=== PATIENT | female | born 1950 | race Caucasian/White ===

== ENCOUNTER → 2016-11-27 | Outpatient (CLI) | payer MEDICARE, BC ==
[~2016-11-27] MED LIST: DULCOLAX STOOL100 MG PO; FERROUS SU325 MG/TAB PO; FLEXERIL 1010 MG/TAB PO; HYZAAR 25 MG-101 TAB PO; MASON NATURAL1200 MG PO; MOTRIN 600600 MG/TAB PO; NORCO 325 MG-101 TAB PO; NORCO 325 MG-51 TAB PO; NORCO 325 MG-7.1 TAB PO; OSCAL 500 TAB500 MG PO; PERCOCET 325 MG1 TA3 PO; PREDNISONE10 MG PO; ROCEPHIN 2GM VIAL21 IV; ROCEPHIN 2GM VIAL21 IV.SOLN; TYLENOL 325MG325 MG PO; ULTRAM 50MG TAB50 MG PO; VITAMIN E1000 U/CAP PO; ZANAFLEX2 MG PO; ZETIA 10MG TAB10 MG PO; ZOCOR 10MG10 MG PO
== END ==
LOC: MC.RAD 11-26 10:00
DX: Z12.31 Encounter for screening mammogram for malignant neoplasm of breast (principal)

== ENCOUNTER → 2016-11-30 | Outpatient (CLI) | payer MEDICARE, BC | LOC: COL.VAS 12:06 | DX: I35.0 Nonrheumatic aortic (valve) stenosis (principal); R01.1 Cardiac murmur, unspecified ==

== ENCOUNTER 2017-02-10 10:56 | Emergency (ER) | payer MEDICARE, BC ==
[~2017-02-10] VITALS: Ht 162.6 cm; Wt 113.6 kg
[2017-02-10 11:01] VITALS: TEMP 98.6
[2017-02-10] MEDS ORDERED: NORCO 325 MG-7.1 TAB PO (11:27)
[2017-02-10] MEDS ORDERED: PREDNISONE10 MG PO (11:27)
[2017-02-10] MEDS ORDERED: ULTRAM 50MG TAB50 MG PO (11:31)
[2017-02-10] MEDS ORDERED: HYZAAR 25 MG-101 TAB PO (11:32)
[2017-02-10] MEDS ORDERED: ZOCOR 10MG10 MG PO (11:32)
[2017-02-10] MEDS ORDERED: VITAMIN E1000 U/CAP PO (11:32)
[2017-02-10] MEDS ORDERED: OSCAL 500 TAB500 MG PO (11:33)
[2017-02-10] MEDS ORDERED: FLEXERIL 1010 MG/TAB PO (11:43)
[2017-02-10] MEDS ORDERED: PERCOCET 325 MG1 TA3 PO (11:43)
[2017-02-10 13:30] VITALS: BP 121/57; PULSE 77
== END 2017-02-10 13:30 | disposition home or self-care (01) ==
LOC: COL.ER 10:56
DX: M19.071 Primary osteoarthritis, right ankle and foot (principal); M62.838 Other muscle spasm
CPT/HCPCS: J1885; J2060; J2270

== ENCOUNTER 2017-02-18 13:45 | Inpatient (IN) | payer MEDICARE, BC ==
[~2017-02-18] VITALS: Ht 165.1 cm; Wt 124.0 kg
[~2017-02-18 13:45] MED LIST changes: -DULCOLAX STOOL100 MG PO; -FERROUS SU325 MG/TAB PO; -MASON NATURAL1200 MG PO; -MOTRIN 600600 MG/TAB PO; -NORCO 325 MG-101 TAB PO; -NORCO 325 MG-51 TAB PO; -ROCEPHIN 2GM VIAL21 IV; -ROCEPHIN 2GM VIAL21 IV.SOLN; -TYLENOL 325MG325 MG PO; -ZANAFLEX2 MG PO; -ZETIA 10MG TAB10 MG PO
[2017-02-18 18:33] VITALS: BP 150/66; PULSE 82; TEMP 99.3
[2017-02-18 18:41] VITALS: BP 150/66; PULSE 82; TEMP 99.3
[2017-02-18] MEDS ORDERED: ROCEPHIN 2GM VIAL21 IV.SOLN (21:48)
[2017-02-18] MEDS ORDERED: DULCOLAX STOOL100 MG PO (21:49)
[2017-02-18] MEDS ORDERED: MOTRIN 600600 MG/TAB PO (21:50)
[2017-02-18] MEDS ORDERED: NORCO 325 MG-51 TAB PO (21:50)
[2017-02-18] MEDS ORDERED: ZANAFLEX2 MG PO (21:52)
[2017-02-18] MEDS ORDERED: ZETIA 10MG TAB10 MG PO (21:54)
[2017-02-18] MEDS ORDERED: MASON NATURAL1200 MG PO (21:55)
[2017-02-19 03:47] VITALS: BP 111/67; PULSE 71; TEMP 98.2
[2017-02-19 16:07] VITALS: BP 157/69; PULSE 78; TEMP 98.6
[2017-02-20 05:00] VITALS: BP 145/65; PULSE 75; TEMP 97.2
[2017-02-20 07:39] LABS: BASO % 0.2 % (0.0-2.0); EOS # 0.2 (0.0-0.7); EOS % 1.5 % (0-4.0); LYMPH # 3.1 (1.2-3.4); LYMPH % 25.2 % (20.0-51.0); MEAN CELL VOLUME 99 fl (80.0-100.0); MEAN CORPUSCULAR HGB CONC 32 g/dl (33.0-37.0); MEAN PLATELET VOLUME 9.9 fl (7.4-10.4); MONO # 0.9 (0.1-0.6); MONO % 7.5 % (1.7-9.3); PLATELET COUNT 769 K/mm3 (130-400); RED BLOOD COUNT 2.66 M/mm3 (4.10-5.30); REDCELL DISTRIBUTION WIDTH-CV 14.5 % (11.5-14.5); WHITE BLOOD COUNT 12.4 K/mm3 (4.8-10.8)
[2017-02-20 07:46] LABS: CALCIUM 9.2 mg/dL (8.4-10.2); CREATININE, serum 0.75 mg/dL (0.52-1.25)
[2017-02-20 08:05] LABS: HEMATOCRIT 26.3 % (37.0-47.0); HEMOGLOBIN 8.5 g/dl (12.5-16.0); MEAN CORPUSCULAR HEMOGLOBIN 32 pg (27.0-31.0)
[2017-02-20 17:03] VITALS: BP 143/48; PULSE 72; TEMP 97.4
[2017-02-21 04:05] VITALS: BP 128/52; PULSE 74; TEMP 98.6
[2017-02-21 18:00] VITALS: BP 140/42; PULSE 80; TEMP 98.3
[2017-02-22 07:04] VITALS: BP 142/76; PULSE 83; TEMP 98.7
[2017-02-22 18:58] VITALS: BP 119/42; PULSE 76; TEMP 97.9
[2017-02-23 05:11] VITALS: BP 117/50; PULSE 87; TEMP 97.5
[2017-02-23 16:46] VITALS: BP 142/51; PULSE 74; TEMP 99.6
[2017-02-24 06:45] VITALS: BP 140/49; PULSE 76; TEMP 99.4
[2017-02-24 16:53] VITALS: BP 108/90; PULSE 69; TEMP 98.5
[2017-02-25 05:23] VITALS: BP 137/53; PULSE 86; TEMP 99
[2017-02-25 07:51] LABS: BASO # 0.1 (0.0-0.2); BASO % 0.6 % (0.0-2.0); EOS # 0.3 (0.0-0.7); EOS % 2.9 % (0-4.0); GRAN # 5.7 (1.4-6.5); GRAN % 56.8 % (42.2-75.2); LYMPH # 3.1 (1.2-3.4); LYMPH % 31.3 % (20.0-51.0); MEAN CELL VOLUME 99 fl (80.0-100.0); MEAN CORPUSCULAR HGB CONC 32 g/dl (33.0-37.0); MEAN PLATELET VOLUME 10.1 fl (7.4-10.4); MONO # 0.8 (0.1-0.6); MONO % 8.1 % (1.7-9.3); PLATELET COUNT 773 K/mm3 (130-400); RED BLOOD COUNT 2.57 M/mm3 (4.10-5.30); REDCELL DISTRIBUTION WIDTH-CV 14.6 % (11.5-14.5)
[2017-02-25 07:58] LABS: HEMATOCRIT 25.4 % (37.0-47.0); HEMOGLOBIN 8.2 g/dl (12.5-16.0); MEAN CORPUSCULAR HEMOGLOBIN 32 pg (27.0-31.0)
[2017-02-25 08:05] LABS: ADJUSTED CALCIUM 9.6 mg/dL (8.4-10.2); ALBUMIN 3.2 gm/dL (3.5-5.0); BILIRUBIN,TOTAL 0.6 mg/dL (0.0-1.0); CREATININE, serum 0.78 mg/dL (0.52-1.25); POTASSIUM 3.9 mmol/L (3.4-5.0); TOTAL PROTEIN 7.2 gm/dL (6.4-8.2)
[2017-02-25 08:30] LABS: C-REACTIVE PROTEIN 16.8 mg/dL (0.0-0.9)
[2017-02-25 16:15] VITALS: BP 117/44; PULSE 77; TEMP 98.2
[2017-02-26 06:12] VITALS: BP 119/50; PULSE 71; TEMP 98.4
[2017-02-26] MEDS ORDERED: ZANAFLEX2 MG PO (11:46)
[2017-02-26] MEDS ORDERED: TYLENOL 325MG325 MG PO (11:47)
[2017-02-26] MEDS ORDERED: NORCO 325 MG-101 TAB PO (11:49)
[2017-02-26] MEDS ORDERED: ROCEPHIN 2GM VIAL21 IV (11:49)
[2017-02-26] MEDS ORDERED: FERROUS SU325 MG/TAB PO (11:50)
== END 2017-02-26 16:00 | disposition home or self-care (01) | DRG 948 ==
PROVIDERS: Family Medicine; Internal Medicine
DX: R53.81 Other malaise (principal); M00.271 Other streptococcal arthritis, right ankle and foot; M00.212 Other streptococcal arthritis, left shoulder; M00.211 Other streptococcal arthritis, right shoulder; Z68.42 Body mass index [BMI] 45.0-49.9, adult; M46.46 Discitis, unspecified, lumbar region; I10 Essential (primary) hypertension; E66.01 Morbid (severe) obesity due to excess calories; Z87.891 Personal history of nicotine dependence; I35.0 Nonrheumatic aortic (valve) stenosis; B95.4 Other streptococcus as the cause of diseases classified elsewhere
CPT/HCPCS: 99222-AI; 99232-AI; 99239; J0696; J1644; J1650

== ENCOUNTER → 2017-03-20 | Outpatient (REF) ==
[~2017-03-20] MED LIST changes: +DULCOLAX STOOL100 MG PO; +FERROUS SU325 MG/TAB PO; +MASON NATURAL1200 MG PO; +MOTRIN 600600 MG/TAB PO; +NORCO 325 MG-101 TAB PO; +NORCO 325 MG-51 TAB PO; +ROCEPHIN 2GM VIAL21 IV; +ROCEPHIN 2GM VIAL21 IV.SOLN; +TYLENOL 325MG325 MG PO; +ZANAFLEX2 MG PO; +ZETIA 10MG TAB10 MG PO
== END ==
LOC: ZAIV 06:20
DX: Z01.89 Encounter for other specified special examinations (principal)

== ENCOUNTER → 2018-04-16 | Outpatient (CLI) | payer MEDICARE, BC | LOC: MC.RAD 11:15 | DX: Z12.31 Encounter for screening mammogram for malignant neoplasm of breast (principal) ==

== ENCOUNTER 2018-06-10 18:46 | Emergency (ER) | payer MEDICARE, BC ==
[~2018-06-10] VITALS: Ht 162.6 cm; Wt 107.3 kg
[2018-06-10 18:49] VITALS: TEMP 98.7
[2018-06-10 20:05] LABS: BASO # 0.1 (0.0-0.2); BASO % 0.6 % (0.0-2.0); EOS # 0.2 (0.0-0.7); EOS % 1.5 % (0-4.0); GRAN # 8.2 (1.4-6.5); GRAN % 71.8 % (42.2-75.2); HEMOGLOBIN 10.3 g/dl (12.5-16.0); LYMPH # 2.2 (1.2-3.4); LYMPH % 19.5 % (20.0-51.0); MEAN CELL VOLUME 94 fl (80.0-100.0); MEAN CORPUSCULAR HEMOGLOBIN 32 pg (27.0-31.0); MEAN CORPUSCULAR HGB CONC 34 g/dl (33.0-37.0); MEAN PLATELET VOLUME 9.8 fl (7.4-10.4); MONO # 0.7 (0.1-0.6); MONO % 6.3 % (1.7-9.3); PLATELET COUNT 397 K/mm3 (130-400); RED BLOOD COUNT 3.27 M/mm3 (4.10-5.30)
[2018-06-10] MEDS ORDERED: NORVASC 5MG5 MG/TAB PO (20:05)
[2018-06-10 20:06] LABS: HEMATOCRIT 30.6 % (37.0-47.0)
[2018-06-10 20:18] LABS: ALANINE AMINOTRANSFERASE 20 U/L (9-52); ALBUMIN 4.1 gm/dL (3.5-5.0); ALKALINE PHOSPHATASE 73 U/L (50-136); ANION GAP 11 mmol/L (7-16); AST,SGOT 22 U/L (15-37); BILIRUBIN,TOTAL 0.3 mg/dL (0.0-1.0); BLOOD UREA NITROGEN 26 mg/dL (7-17); C-REACTIVE PROTEIN 1.1 mg/dL (0.0-0.9); CALCIUM 8.5 mg/dL (8.4-10.2); CARBON DIOXIDE 24 mmol/L (22-30); CHLORIDE 100 mmol/L (98-107); CREATININE, serum 0.85 mg/dL (0.52-1.25); GLUCOSE 118 mg/dL (74-106); POTASSIUM 4.2 mmol/L (3.4-5.0); SODIUM 135 mmol/L (137-145); TOTAL PROTEIN 8.1 gm/dL (6.4-8.2)
[2018-06-10 20:26] LABS: TROPONIN-I < 0.012 ng/mL (0.000-0.034)
[2018-06-10] MEDS ORDERED: ATIVAN 0.50.5 MG/TAB PO (20:56)
[2018-06-10 21:04] VITALS: BP 141/49; PULSE 73
== END 2018-06-10 21:04 | disposition home or self-care (01) ==
LOC: COL.ER 18:46
PROVIDERS: Emergency Medicine
DX: R42 Dizziness and giddiness (principal); I10 Essential (primary) hypertension; E78.5 Hyperlipidemia, unspecified

== ENCOUNTER → 2019-08-10 | Outpatient (CLI) | payer MEDICARE, BC ==
[~2019-08-10] MED LIST changes: +ATIVAN 0.50.5 MG/TAB PO; +NORVASC 5MG5 MG/TAB PO
== END ==
LOC: MC.RAD 10:42
DX: Z12.31 Encounter for screening mammogram for malignant neoplasm of breast (principal)

== ENCOUNTER → 2020-08-12 | Outpatient (CLI) | payer MEDICARE, BC | LOC: MC.RAD 08-11 10:30 | DX: Z12.31 Encounter for screening mammogram for malignant neoplasm of breast (principal) ==

== ENCOUNTER → 2022-01-02 | Outpatient (CLI) | payer MEDICARE, BC | LOC: MC.RAD 10:09 | DX: Z12.31 Encounter for screening mammogram for malignant neoplasm of breast (principal) ==